=== PATIENT | female | born 1960 | race African-American/Black ===

== ENCOUNTER 2019-05-23 00:57 | Emergency (ER) | payer SELFPAY ==
--- NOTE | 2019-05-23 01:24 | EDM.PDOC ---
ED HPI GENERAL MEDICAL PROBLEM - General Chief Complaint: ENT Problem Stated Complaint: FEVER AND COUGHING Time Seen by Provider: 05/23/19 01:17 Source of Information: Reports: Patient History Limitations: Reports: No Limitations - History of Present Illness INITIAL COMMENTS - FREE TEXT/NARRATIVE: 58-year-old female presents the emergency room with a chief complaint of fever chills muscle aches and cough. Patient states is been going on for 2 days. Duration: Day(s): Location: Reports: Head, Back Quality: Reports: Ache Severity: Moderate Improves with: Reports: None Worsens with: Reports: None Associated Symptoms: Reports: No Other Symptoms generalized Pain Score (Numeric/FACES): 6 - Related Data Allergies Allergy/AdvReac Type Severity Reaction Status Date / Time No Known Allergies Allergy Verified 05/23/19 01:15 Home Meds: Home Meds Naproxen [Naprosyn] 500 mg PO Q12HR 7 Days #14 tab 05/23/19 [Rx] ED ROS ENT - Review of Systems Review Of Systems: Comprehensive ROS is negative, except as noted in HPI. Constitutional: Reports: Fever, Malaise HEENT: Reports: No Symptoms, Throat Pain. Denies: Contact Lenses, Dental Pain, Ear Discharge, Eye Pain, Glasses, Hearing Loss, Nosebleed Respiratory: Reports: No Symptoms Cardiovascular: Reports: No Symptoms Endocrine: Reports: No Symptoms GI/Abdominal: Reports: No Symptoms. Denies: Abdominal Pain, Anorexia, Black Stool, Bloody Stool, Constipation, Diarrhea : Reports: No Symptoms Musculoskeletal: Reports: No Symptoms Skin: Reports: No Symptoms Neurological: Reports: No Symptoms Psychiatric: Reports: No Symptoms Hematologic/Lymphatic: Reports: No Symptoms Immunologic: Reports: No Symptoms ED EXAM, ENT - Physical Exam Exam: See Below Exam Limited By: No Limitations General Appearance: Alert, WD/WN, Mild Distress Eye Exam: Bilateral Eye: PERRL Ears: Normal External Exam, Normal Canal, Hearing Grossly Normal, Normal TMs Nose: Normal Inspection, Normal Mucousa, No Blood Mouth/Throat: Normal Inspection, Normal Gums, Normal Lips, Normal Oropharynx, Normal Teeth Head: Atraumatic, Normocephalic Neck: Normal Inspection, Supple, Non-Tender, Full Range of Motion Respiratory/Chest: No Respiratory Distress, Lungs Clear, Normal Breath Sounds, No Accessory Muscle Use, Chest Non-Tender Cardiovascular: Normal Peripheral Pulses, Regular Rate, Rhythm, No Edema, No JVD GI/Abdominal: Normal Bowel Sounds, Soft, Non-Tender (Female) Exam: Deferred Rectal (Female) Exam: Deferred Extremities: Normal Inspection, Normal Range of Motion, Non-Tender Neurological: Alert, Oriented, CN II-XII Intact Course - Vital Signs Last Recorded V/S: Last Vital Signs Temp 98.8 F 05/23/19 01:10 Pulse 109 H 05/23/19 01:10 Resp 18 05/23/19 01:10 BP 108/76 05/23/19 01:10 Pulse Ox 98 05/23/19 01:10 - Orders/Labs/Meds Orders: Active Orders 24 hr Category Date Time Status CULTURE STREP A CONFIRMATION [RM] Stat Lab 05/23/19 01:05 Results STREP SCRN A RAPID W CULT CONF [RM] Stat Lab 05/23/19 01:05 Results Departure - Departure Time of Disposition: 02:17 Disposition: Home, Self-Care 01 Condition: Good Clinical Impression: Viral syndrome - Discharge Information Prescriptions: Naproxen [Naprosyn] 500 mg PO Q12HR 7 Days #14 tab Referrals: PCP,Unobtain [Primary Care Provider] - Forms: ED Department Discharge Sepsis Event Note - Evaluation Sepsis Screening Result: No Definite Risk - Focused Exam Vital Signs: Vital Signs Temp Pulse Resp BP Pulse Ox 05/23/19 01:10 98.8 F 109 H 18 108/76 98 Date Exam was Performed: 05/23/19 Time Exam was Performed: 02:19 - My Orders Last 24 Hours: My Active Orders 05/23/19 01:05 CULTURE STREP A CONFIRMATION [RM] Stat STREP SCRN A RAPID W CULT CONF [RM] Stat - Assessment/Plan Last 24 Hours: My Active Orders 05/23/19 01:05 CULTURE STREP A CONFIRMATION [RM] Stat STREP SCRN A RAPID W CULT CONF [RM] Stat
== END 2019-05-23 02:30 | disposition home or self-care (01) ==
LOC: MW.ED 00:57
DX: B34.9 Viral infection, unspecified (principal)
CPT/HCPCS: 87081; 87804; 87880-QW; 99282; 99283

== ENCOUNTER 2019-06-07 08:36 | Emergency (ER) | payer SELFPAY ==
[2019-06-07] MEDS ORDERED: Lidocaine 2% Viscous Solution 15 ML Cup PO ONE (08:39)
[2019-06-07] MEDS ORDERED: Benzocaine 20% Topical Spray UD MUCMEM ONE (08:39)
--- NOTE | 2019-06-07 08:46 | EDM.PDOC ---
ED HPI GENERAL MEDICAL PROBLEM - General Chief Complaint: ENT Problem Stated Complaint: ABSESSED ON TOOTH Time Seen by Provider: 06/07/19 08:38 Source of Information: Reports: Patient History Limitations: Reports: No Limitations - History of Present Illness INITIAL COMMENTS - FREE TEXT/NARRATIVE: HISTORY AND PHYSICAL: History of present illness: Patient is a 58-year-old female who presents to the ED today with concern of dental abscess x1 day. Patient states she has had multiple dental abscess in the past and that her symptoms are the same as past dental abscess. Patient states she has a bad tooth which has abscess in the past and she has not got removed and continues to be an issue. Patient states she does have pain with chewing on the right side of her mouth but has been able to eat and drink if she chews food on the other side. Patient denies any other symptoms or concerns. Patient denies fever, chills, chest pain, shortness of breath, or cough. Denies headache, neck stiff ness, change in vision, syncope, or near syncope. Denies nausea, vomiting, abdominal pain, diarrhea, constipation, or dysuria. Has not noted any blood in urine or stool. Patient has been eating and drinking appropriately. Review of systems: As per history of present illness and below otherwise all systems reviewed and negative. Past medical history: As per history of present illness and as reviewed below otherwise noncontributory. Surgical history: As per history of present illness and as reviewed below otherwise noncontributory. Social history: See social history for further information Family history: As per history of present illness and as reviewed below otherwise noncontributory. Physical exam: General: Patient is alert, oriented, and in no acute distress. Patient sitting comfortably on exam table. HEENT: Atraumatic, normocephalic, pupils equal and reactive bilaterally, negative for conjunctival pallor or scleral icterus, mucous membranes moist, TMs normal bilaterally, throat clear, neck supple, nontender, trachea midline. No drooling or trismus noted. No meningeal signs. No hot potato voice noted. Lungs: Clear to auscultation, breath sounds equal bilaterally, chest nontender. Tooth #28 is severely eroded with moderate pain to palpation of the tooth with surrounding edema/erythema of the tooth. The adjacent mandible jawline is mild- moderately edematous with mild pain to palpation. Heart: S1S2, regular rate and rhythm without overt murmur Abdomen: Soft, nondistended, nontender. Negative for masses or hepatosplenomegaly. Negative for costovertebral tenderness. Pelvis: Stable nontender. Genitourinary: Deferred. Rectal: Deferred. Skin: Intact, warm, dry. No lesions or rashes noted. Extremities: Atraumatic, negative for cords or calf pain. Neurovascular unremarkable. Neuro: Awake, alert, oriented. Cranial nerves II through XII unremarkable. Cerebellum unremarkable. Motor and sensory unremarkable throughout. Exam nonfocal. Notes: Incision and drainage of dental abscess. Incision and drainage performed by Dr. Bates. Area of abscess was anesthetized using 0.5% bupivacaine. 11 blade scalpel used to make a small incision into the abscess. Small amount of puss drainage from abscess. Patient tolerated procedure well. Discussed the importance of follow up with a dentist. Voices understanding and is agreeable to plan of care. Denies any further questions or concerns at this time. Diagnostics: None Therapeutics: Dental balls, Bupivacaine Prescription: Clindamycin Impression: Dental abscess Plan: 1. Please take medication as prescribed. 2. Tylenol and/or ibuprofen as directed and as needed for pain management. Rinse your mouth 4 times a day with warm water, swish and spit out. 3. "Tooth Balls" have been given to you; apply along the gumline every 2-3 hours as needed. Do not swallow these; external use only. 4. Follow-up with a dentist for definitive care. Return to the ED as needed and as discussed. Definitive disposition and diagnosis as appropriate pending reevaluation and review of above. 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: Musculoskeletal History: Reports: None Neurological History: Reports: None Psychiatric History: Reports: None Endocrine/Metabolic History: Reports: None Insulin Pump Model and Professor In Family Studies: None Hematologic History: Reports: None Immunologic History: Reports: None Oncologic (Cancer) History: Reports: None Dermatologic History: Reports: None - Infectious Disease History Infectious Disease History: Reports: None - Past Surgical History Head Surgeries/Procedures: Reports: None Social & Family History - Family History Family Medical History: Noncontributory - Caffeine Use Caffeine Use: Reports: Soda ED ROS GENERAL - Review of Systems Review Of Systems: Comprehensive ROS is negative, except as noted in HPI. ED EXAM, GENERAL - Physical Exam Exam: See Below (see dictation) Course - Vital Signs Last Recorded V/S: Last Vital Signs Temp 96.5 F 06/07/19 08:47 Pulse 77 06/07/19 08:47 Resp 18 06/07/19 08:47 BP 140/91 H 06/07/19 08:47 Pulse Ox 99 06/07/19 08:47 - Orders/Labs/Meds Meds: Medications Discontinued Medications Generic Name Dose Route Start Last Admin Trade Name Freq PRN Reason Stop Dose Admin Benzocaine 2 each 06/07/19 08:39 06/07/19 09:07 Hurricaine One 20% MUCMEM 06/07/19 08:40 2 each ONETIME ONE Administration Bupivacaine HCl 10 ml 06/07/19 08:59 06/07/19 09:07 Sensorcaine-Mpf 0.5% INJECT 06/07/19 09:00 10 ml ONETIME ONE Administration Lidocaine HCl 15 ml 06/07/19 08:39 06/07/19 09:07 Xylocaine 2% Viscous PO 06/07/19 08:40 15 ml ONETIME ONE Administration Departure - Departure Time of Disposition: 09:26 Disposition: Home, Self-Care 01 Clinical Impression: Dental abscess - Discharge Information Prescriptions: Clindamycin HCl 300 mg PO TID 10 Days #30 capsule Referrals: PCP,None [Primary Care Provider] - Forms: ED Department Discharge Additional Instructions: The following information is given to patients seen in the emergency department who are being discharged to home. This information is to outline your options for follow-up care. We provide all patients seen in our emergency department with a follow-up referral. The need for follow-up, as well as the timing and circumstances, are variable depending upon the specifics of your emergency department visit. If you don't have a primary care physician on staff, we will provide you with a referral. We always advise you to contact your personal physician following an emergency department visit to inform them of the circumstance of the visit and for follow-up with them and/or the need for any referrals to a consulting specialist. The emergency department will also refer you to a specialist when appropriate. This referral assures that you have the opportunity for follow-up care with a specialist. All of these measure are taken in an effort to provide you with optimal care, which includes your follow-up. Under all circumstances we always encourage you to contact your private physician who remains a resource for coordinating your care. When calling for follow-up care, please make the office aware that this follow-up is from your recent emergency room visit. If for any reason you are refused follow-up, please contact the [facility] Emergency Department at and asked to speak to the emergency department charge nurse. [facility] [address] [place] [id number] [facility] [address] [place] [id number] 1. Please take medication as prescribed. 2. Tylenol and/or ibuprofen as directed and as needed for pain management. Rinse your mouth 4 times a day with warm water, swish and spit out. 3. "Tooth Balls" have been given to you; apply along the gumline every 2-3 hours as needed. Do not swallow these; external use only. 4. Follow-up with a dentist for definitive care. Return to the ED as needed and as discussed. Sepsis Event Note - Focused Exam Vital Signs: Vital Signs Temp Pulse Resp BP Pulse Ox 06/07/19 08:47 96.5 F 77 18 140/91 H 99 Date Exam was Performed: 06/07/19 Time Exam was Performed: 09:22
[2019-06-07] MEDS ORDERED: Bupivacaine 0.5% 10 ML SDV INJECT ONE (08:59)
== END 2019-06-07 09:40 | disposition home or self-care (01) ==
LOC: MW.ED 08:36
DX: K04.7 Periapical abscess without sinus (principal); I10 Essential (primary) hypertension
CPT/HCPCS: 41800; 99282; A9270; J3490

== ENCOUNTER 2021-04-22 12:24 | Emergency (ER) | payer OTHER ==
[2021-04-22] MEDS ORDERED: Acetaminophen 325 MG Tab PO ONE (12:58)
--- NOTE | 2021-04-22 13:07 | EDM.PDOC ---
ED HPI GENERAL MEDICAL PROBLEM - General Chief Complaint: Head Injury Stated Complaint: ITEMS FELL ON PTS HEAD AT WORK Time Seen by Provider: 04/22/21 12:29 Source of Information: Reports: Patient History Limitations: Reports: No Limitations - History of Present Illness INITIAL COMMENTS - FREE TEXT/NARRATIVE: 60-year-old female who presents today after getting hit on the top of her head with a beam while at work. She denies any LOC inside any cuts or bruising to the top of her head. Says she is has a achy feeling there is not radiating she does not take any pain meds for she denies any vision changes any numbness weakness in your extremities. Head Pain Score (Numeric/FACES): 10 - Related Data Allergies Allergy/AdvReac Type Severity Reaction Status Date / Time No Known Allergies Allergy Verified 06/07/19 08:46 Home Meds: Home Meds . 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: Musculoskeletal History: Reports: None Neurological History: Reports: None Psychiatric History: Reports: None Endocrine/Metabolic History: Reports: None Insulin Pump Model and Financial Professional: None Hematologic History: Reports: None Immunologic History: Reports: None Oncologic (Cancer) History: Reports: None Dermatologic History: Reports: None - Infectious Disease History Infectious Disease History: Reports: None - Past Surgical History Head Surgeries/Procedures: Reports: None HEENT Surgical History: Reports: None Cardiovascular Surgical History: Reports: None Respiratory Surgical History: Reports: None GI Surgical History: Reports: None Female Surgical History: Reports: None Endocrine Surgical History: Reports: None Neurological Surgical History: Reports: None Musculoskeletal Surgical History: Reports: None Oncologic Surgical History: Reports: None Dermatological Surgical History: Reports: None Social & Family History - Family History Family Medical History: No Pertinent Family History - Tobacco Use Tobacco Use Status *Q: Never Tobacco User - Caffeine Use Caffeine Use: Reports: Soda - Recreational Drug Use Recreational Drug Use: No ED ROS GENERAL - Review of Systems Review Of Systems: See Below Constitutional: Reports: No Symptoms HEENT: Reports: No Symptoms Respiratory: Reports: No Symptoms Cardiovascular: Reports: No Symptoms Endocrine: Reports: No Symptoms GI/Abdominal: Reports: No Symptoms : Reports: No Symptoms Musculoskeletal: Reports: No Symptoms Skin: Reports: No Symptoms Neurological: Reports: No Symptoms Psychiatric: Reports: No Symptoms Hematologic/Lymphatic: Reports: No Symptoms Immunologic: Reports: No Symptoms ED EXAM, HEAD INJURY - Physical Exam Exam: See Below Exam Limited By: No Limitations General Appearance: Alert, WD/WN, No Apparent Distress Head: Atraumatic, Normocephalic Nexus Criteria: No: Posterior, Midline Cervical Tenderness, Evidence of Intoxication, Altered Level of Consciousness, Focal Neurological Deficit, Painful Distraction Injuries Eyes: Bilateral Eye: EOMI, PERRL Ears: Normal External Exam Nose: Normal Inspection Throat/Mouth: Normal Inspection, Normal Lips, Normal Teeth Neck: Non-Tender, Full Range of Motion Respiratory: No Respiratory Distress, Lungs Clear, Normal Breath Sounds Cardiovascular: Normal Peripheral Pulses, Regular Rate, Rhythm GI/Abdominal Exam: Normal Bowel Sounds, Soft, Non-Tender Extremities: Normal Inspection, Normal Range of Motion Neurologic: No Motor/Sensory Deficits, Alert, Normal Mood/Affect, Oriented x 3 - [place]una Coma Score Best Eye Response (Laguna): (4) Open Spontaneously Best Verbal Response (Laguna): (5) Oriented Best Motor Response (Laguna): (6) Obeys Commands Course - Vital Signs Last Recorded V/S: Last Vital Signs Temp 96.8 F L 04/22/21 12:42 Pulse 67 04/22/21 13:08 Resp 18 04/22/21 12:42 BP 189/96 H 04/22/21 13:08 Pulse Ox 99 04/22/21 13:08 - Orders/Labs/Meds Meds: Medications Discontinued Medications Generic Name Dose Route Start Last Admin Trade Name Kim PRN Reason Stop Dose Admin Acetaminophen 650 mg 04/22/21 12:58 04/22/21 13:07 Acetaminophen 325 Mg Tab PO 04/22/21 12:59 650 mg NOW ONE Administration Ketorolac Tromethamine 30 mg 04/22/21 14:28 04/22/21 14:38 Ketorolac 30 Mg/Ml Sdv IM 04/22/21 14:29 30 mg ONETIME ONE Administration - Re-Assessments/Exams Free Text/Narrative Re-Assessment/Exam: 04/22/21 14:[address] scans are negative. She does have elevated blood pressure but states is a good amount of pain. Again patient is not taking medication she has no high blood pressure. Currently patient not have any symptomatically issues for my blood pressure no chest pain no vision changes no urinary symptoms. Departure - Departure Time of Disposition: 14:42 Disposition: Home, Self-Care 01 Condition: Good Clinical Impression: Head injury - Discharge Information *PRESCRIPTION DRUG MONITORING PROGRAM REVIEWED*: Not Applicable *COPY OF PRESCRIPTION DRUG MONITORING REPORT IN PATIENT YUE: Not Applicable Instructions: Head Injury, Adult Referrals: PCP,None [Primary Care Provider] - Forms: ED Department Discharge Additional Instructions: You were seen after you had a BM fall in your head while at work. We did images and did not show any fractures or bleeds in your brain or fractures to your cervical spine. We recommend continued follow-up to primary care physician also your blood pressure is very elevated it could be due to the pain but you should also follow-up with your primary care physician as you may need some blood pressure medication if you develop any symptoms please return to ED. The following information is given to patients seen in the emergency department who are being discharged to home. This information is to outline your options for follow-up care. We provide all patients seen in our emergency department with a follow-up referral. The need for follow-up, as well as the timing and circumstances, are variable depending upon the specifics of your emergency department visit. If you don't have a primary care physician on staff, we will provide you with a referral. We always advise you to contact your personal physician following an emergency department visit to inform them of the circumstance of the visit and for follow-up with them and/or the need for any referrals to a consulting specialist. The emergency department will also refer you to a specialist when appropriate. This referral assures that you have the opportunity for follow-up care with a specialist. All of these measure are taken in an effort to provide you with optimal care, which includes your follow-up. Under all circumstances we always encourage you to contact your private physician who remains a resource for coordinating your care. When calling for follow-up care, please make the office aware that this follow-up is from your recent emergency room visit. If for any reason you are refused follow-up, please contact the [facility] Emergency Department at and asked to speak to the emergency department charge nurse. Please follow up with your primary care physician. If you do not have a primary care physician, see below: [facility] [address] [place] [address] [facility] [address] [place], [place] [id number] Sepsis Event Note (ED) - Evaluation Sepsis Screening Result: No Definite Risk - Focused Exam Vital Signs: Vital Signs Temp Pulse Resp BP Pulse Ox 04/22/21 13:08 67 189/96 H 99 04/22/21 12:42 96.8 F L 86 18 200/125 H 98 - Assessment/Plan Plan: Patient is a 60-year-old female presents today after being hit in the top of head with a beam at work. She had no LOC chest no neurological deficit on exam will obtain images and reassess patient. Patient also has elevated blood pressure states she does not take any medication for she currently has no symptoms pain could be causing her blood pressure be higher than what it normally is we will continue to assess patient.
--- NOTE | 2021-04-22 14:17 | CT ---
INDICATION: Beam fell on top of head. COMPARISON: None. TECHNIQUE: CT of the head without IV contrast. Coronal and sagittal reconstructions are provided. FINDINGS: No intracranial hemorrhage, mass effect, or evidence of acute infarct. No midline shift. No abnormal extra-axial fluid collections. Normal caliber ventricular system. Orbits and extraocular muscles are symmetric. Mild mucosal thickening in the right maxillary sinus. The paranasal sinuses and mastoid air cells are otherwise clear. No acute fracture identified. Periapical lucencies about multiple maxillary teeth. Soft tissues are unremarkable. IMPRESSION: : No acute intracranial findings. Please note that all CT scans at this facility use dose modulation, iterative reconstruction, and/or weight-based dosing when appropriate to reduce radiation dose to as low as reasonably achievable. Dictated by Cherelle Maria MD @ 04/22/2021 2:16:52 PM (Electronically Signed)
[2021-04-22] MEDS ORDERED: Ketorolac 30 MG/ML SDV IM ONE (14:28)
--- NOTE | 2021-04-22 14:28 | CT ---
Indication: Beam fell on top of head. Technique: CT of the cervical spine without IV contrast. Coronal and sagittal reconstructions. Comparison: None. Findings: No acute fracture or traumatic malalignment of the cervical spine. Vertebral body heights are well maintained. Normal vertebral body alignment. No significant disc space narrowing. No significant neural foraminal narrowing or spinal canal stenosis. No prevertebral soft tissue swelling. Visualized intracranial contents are unremarkable. The mastoid air cells are clear. Periapical lucencies about the visualized teeth. There are multiple enlarged submandibular lymph nodes which may be reactive. The thyroid gland is normal in appearance. The lung apices are clear. Impression: 1. No acute fracture or traumatic malalignment of the cervical spine. 2. Multiple mildly enlarged submandibular lymph nodes may be reactive. Please note that all CT scans at this facility use dose modulation, iterative reconstruction, and/or weight-based dosing when appropriate to reduce radiation dose to as low as reasonably achievable. Dictated by Cherelle Maria MD @ 04/22/2021 2:25:47 PM (Electronically Signed)
[2021-04-22] MEDS ORDERED: amLODIPine 5 MG Tab PO ONE (14:46)
== END 2021-04-22 15:14 | disposition home or self-care (01) ==
LOC: MW.ED 12:24
DX: S09.90XA Unspecified injury of head, initial encounter (principal); I10 Essential (primary) hypertension; W22.09XA Striking against other stationary object, initial encounter; Y99.0 Civilian activity done for income or pay
CPT/HCPCS: 70450; 72125; 96372; 99283; A9270; J1885

== ENCOUNTER 2022-02-25 11:04 | Emergency (ER) | payer OTHER ==
[2022-02-25] MEDS ORDERED: traMADol 50 MG Tab PO ONE (11:45)
== END 2022-02-25 12:45 | disposition home or self-care (01) ==
LOC: MW.ED 11:04
DX: S93.602A Unspecified sprain of left foot, initial encounter (principal)
CPT/HCPCS: 73630; 99283; A9270

== ENCOUNTER 2022-05-07 16:17 | Emergency (ER) | payer OTHER ==
[2022-05-07] MEDS ORDERED: Ibuprofen 600 MG Tab PO ONE (18:31)
== END 2022-05-07 20:08 | disposition home or self-care (01) ==
LOC: MW.ED 16:17
DX: S50.01XA Contusion of right elbow, initial encounter (principal); S30.0XXA Contusion of lower back and pelvis, initial encounter; I10 Essential (primary) hypertension; Z79.899 Other long term (current) drug therapy; W00.9XXA Unspecified fall due to ice and snow, initial encounter
CPT/HCPCS: 72100; 73110; 73502; 99283; A9270

== ENCOUNTER 2024-08-18 18:18 | Emergency (ER) | payer MEDICAID, OTHER ==
[2024-08-18] MEDS: Diltiazem 25 MG/5 ML SDV ONE (18:33)
[2024-08-18 19:02] LABS: BASOPHILS ABSOLUTE AUTO 0.03 K/uL (0.00-0.20); BASOPHILS PERCENT AUTO 0.4 % (0.0-1.0); EOSINOPHILS ABSOLUTE AUTO 0.02 K/uL (0.00-0.45); EOSINOPHILS PERCENT AUTO 0.3 % (0.0-6.0); HEMATOCRIT 15.4 % (37.0-47.0); HEMOGLOBIN 5.2 g/dL (12.0-16.0); IMMATURE GRAN ABSOLUTE AUTO 0.02 K/uL (0.00-0.05); IMMATURE GRAN PERCENT AUTO 0.3 % (0.0-0.4); LYMPHOCYTES ABSOLUTE AUTO 3.56 K/uL (1.00-4.80); LYMPHOCYTES PERCENT AUTO 45.8 % (24.0-44.0); MEAN CORPUSCULAR HEMOGLOBIN 33.1 pg (28.0-32.0); MEAN CORPUSCULAR HGB CONC 33.8 g/dL (32.0-36.0); MEAN CORPUSCULAR VOLUME 98.1 fL (83.0-99.0); MEAN PLATELET VOLUME 11.8 fL (9.4-12.3); MONOCYTES ABSOLUTE AUTO 0.49 K/uL (0.00-0.80); MONOCYTES PERCENT AUTO 6.3 % (0.0-8.0); NEUTROPHILS ABSOLUTE AUTO 3.66 K/uL (1.80-7.70); NEUTROPHILS PERCENT AUTO 46.9 % (41.0-71.0); PLATELET COUNT,PLT 273 K/uL (150-400); RED BLOOD CELL COUNT 1.57 M/uL (4.10-5.30); WHITE BLOOD CELL COUNT,WBC 7.78 K/uL (3.9-11.3)
[2024-08-18 19:10] LABS: INR 1.08 (0.86-1.11)
[2024-08-18] MEDS: Sodium Chloride 0.9% 1,000 ML IV ONE ×4 (19:10→19:12)
[2024-08-18] MEDS: Diltiazem 100 MG in Sodium Chloride 0.9% 100 ML IV SCH (19:12)
[2024-08-18] MEDS: Diltiazem 25 MG/5 ML SDV IVPUSH ONE (19:12)
[2024-08-18] MEDS: Magnesium Sulf/Wat 2 GM/50 mL 50 ML ONE (19:16)
[2024-08-18 19:35] LABS: ALANINE AMINOTRANSFERASE,ALT 10 IU/L (14-63); ALBUMIN 2.7 g/dL (3.4-5.0); ALKALINE PHOSPHATASE 36 U/L (46-116); ASPARTATE AMNIOTRANSFERASE,AST 11 IU/L (15-37); BILIRUBIN TOTAL 0.4 mg/dL (0.2-1.0); BLOOD UREA NITROGEN,BUN 40 mg/dL (7.0-18.0); CALCIUM 8.5 mg/dL (8.5-10.1); CARBON DIOXIDE,CO2 20.4 mmol/L (21.0-32.0); CHLORIDE,CL 102 mmol/L (98-107); GLUCOSE RANDOM 220 mg/dL (74-106); LIPASE 16 U/L (16-77); MAGNESIUM 1.5 mg/dL (1.8-2.4); PROTEIN TOTAL,TP 5.5 g/dL (6.4-8.2); SODIUM,NA 139 mmol/L (136-145)
[2024-08-18 19:40] LABS: ESTIMATED GFR 28 mL/min (>60); ETHANOL BLOOD MEDICAL < 3.0 mg/dL
[2024-08-18] MEDS: Adenosine 6 MG/2 ML SDV IVPUSH ONE ×2 (19:48→19:49)
[2024-08-18] MEDS: Pantoprazole 80 MG in Sodium Chloride 0.9% 10 ML IVPUSH ONE ×2 (19:50→20:19)
[2024-08-18] MEDS: Ondansetron 4 MG/2 ML SDV IVPUSH ONE (19:58)
[2024-08-18 20:12] LABS: LACTIC ACID 4.5 mmol/L (0.4-2.0)
[2024-08-18] MEDS: cefTRIAXone 1 GM in Sodium Chloride 0.9% 50 ML IV ONE (20:19)
[2024-08-18] MEDS: Octreotide 500 MCG in Sodium Chloride 0.9% 250 ML IV SCH (20:50)
[2024-08-18 20:52] LABS: BILIRUBIN,URINE NEGATIVE (NEGATIVE); COLOR,URINE YELLOW; GLUCOSE,URINE NEGATIVE (NEGATIVE); KETONES,URINE NEGATIVE (NEGATIVE); LEUKOCYTE ESTERASE,URINE TRACE (NEGATIVE); NITRITE,URINE NEGATIVE (NEGATIVE); OCCULT BLOOD,URINE NEGATIVE (NEGATIVE); PH,URINE 5.5 (5.0-8.0); PROTEIN,URINE TRACE mg/dL (NEGATIVE)
[2024-08-18 20:53] LABS: APPEARANCE,URINE HAZY
[2024-08-18 21:01] LABS: AMPHETAMINES SCREEN, URINE NEGATIVE (CUTOFF=500); BARBITURATE SCREEN,URINE NEGATIVE (CUTOFF=200); BENZODIAZEPINES SCREEN,URINE NEGATIVE (CUTOFF=150); BUPRENORPHINE SCREEN,URINE NEGATIVE (CUTOFF=10); METHADONE SCREEN, URINE NEGATIVE (CUTOFF=200); METHAMPHETAMINES SCREEN, URINE NEGATIVE (CUTOFF=500); OXYCODONE SCREEN,URINE NEGATIVE (CUT0FF=100); PCP SCREEN,URINE NEGATIVE (CUTOFF=25); THC SCREEN,URINE 20 NG/ML NEGATIVE (CUTOFF=50)
[2024-08-18 21:02] LABS: BACTERIA,URINE 1+ (NEGATIVE); MUCUS,URINE LIGHT (NONE-MOD); RBC,URINE 0-2 (0-2/HPF); SQUAMOUS EPITHELIAL CELLS,UR MODERATE
[2024-08-18] MEDS: Magnesium Sulf/Wat 2 GM/50 mL 2 GM in Premix Bag 1 BAG IV ONE (21:21)
[2024-08-18] MEDS: Norepinephrine Bit/D5W Premix 250 ML ONE (21:21)
[2024-08-18] MEDS: Sodium Chloride 0.9% 100 ML ONE (21:28)
[2024-08-18] MEDS: Ondansetron 4 MG/2 ML SDV ONE (21:28)
[2024-08-19] MEDS: Sodium Chloride 0.9% 1,000 ML IV ONE (06:29)
== END 2024-08-19 00:05 ==
LOC: MW.ED 18:18
DX: I47.10 Supraventricular tachycardia, unspecified (principal); I95.9 Hypotension, unspecified; K92.1 Melena; Z86.16 Personal history of COVID-19
CPT/HCPCS: 36415; 36430; 51702; 71045; 80053; 80305; 80307; 81001; 82947; 83605; 83690; 83735; 84443; 84484; 85025; 85610; 86850; 86900; 86901; 86920; 87086; 93005; 96361; 96365; 96366; 96367; 96375; 99285; J0153; J0696; J2354; J2405; J2470; J3475; J3490; J7030; P9016; 36620; 93010